=== PATIENT | male | born 1990 | race Two or more races ===

== ENCOUNTER 2022-05-28 05:45 | Emergency (ER) | payer SELFPAY ==
--- NOTE | 2022-05-28 06:15 | XR_ITS ---
PROCEDURE INFORMATION: Exam: XR Chest Exam date and time: 05/28/2022 6:34 AM Age: 31 years old Clinical indication: Shortness of breath; Additional info: Cough shortness of breath TECHNIQUE: Imaging protocol: Radiologic exam of the chest. Views: 1 view. COMPARISON: No relevant prior studies available. FINDINGS: Lungs: Unremarkable. No consolidation. Pleural spaces: Unremarkable. No pleural effusion. No pneumothorax. Heart/Mediastinum: Enlarged cardiac silhouette. Findings are nonspecific and may be due to technique versus cardiomegaly versus pericardial effusion. Bones/joints: Unremarkable. IMPRESSION: Enlarged cardiac silhouette. Findings are nonspecific and may be due to technique versus cardiomegaly versus pericardial effusion.
[2022-05-28 06:16] VITALS: BP 153/98; PULSE 84; RESP 18; TEMP 36.8; O2SAT 97; BMI 35.4
[2022-05-28 06:49] LABS: Coronavirus 19, PCR Not Detected (NotDetected); Influenza A, PCR Not Detected (NotDetected); Influenza B, PCR Not Detected (NotDetected)
[2022-05-28 06:54] LABS: Basophils # 0.1 K/mm3 (0-0.2); Basophils % 0.6 % (0.1-2.0); Chloride 105 mmol/L (98-107); Eosinophils # 0.3 K/mm3 (0.0-0.4); Eosinophils % 2.6 % (0.1-12.0); Hematocrit 44.6 % (42.0-52.0); Hemoglobin 14.9 g/dL (14.1-18.0); Lymphocytes # 1.7 K/mm3 (0.7-4.5); Lymphocytes % 16.8 % (10-50); Mean Corpuscular HGB Conc 33.5 g/dL (31.8-35.4); Mean Corpuscular Hemoglobin 28.7 pg (27.0-31.2); Mean Corpuscular Volume 85.5 fl (80-94); Mean Platelet Volume 9.2 fl (7.4-10.4); Monocytes # 0.5 K/mm3 (0.1-1.0); Monocytes % 4.6 % (1.7-9.3); Neutrophils # 7.8 K/mm3 (1.8-7.8); Neutrophils % 75.4 % (37.0-80.0); Platelet Count 280 K/mm3 (142-424); Potassium 4.1 mmoL/L (3.5-5.1); Red Blood Count 5.22 M/mm3 (4.60-6.20); Red Cell Distribution Width 13.1 % (11.5-17.5); Sodium 140 mmol/L (136-145); White Blood Count 10.3 K/mm3 (4.8-10.8)
[2022-05-28 06:57] LABS: Blood Urea Nitrogen 14 mg/dl (9-20); Creatinine Clearance Estimated 200 mL/min (50-200); Estimated Glomerular Filt Rate 133 ml/min (>60); GFR (African American) 161 ML/MIN (>60)
[2022-05-28 06:58] LABS: Anion Gap 13.1 mEq/L (5-15); Calcium 8.6 mg/dl (8.4-10.2); Carbon Dioxide 26 mmol/L (22.0-30.0); Glucose 122 mg/dl (74-100)
[2022-05-28 07:01] VITALS: BP 139/86; PULSE 86; RESP 17; O2SAT 98
--- NOTE | 2022-05-28 07:15 | [facility].EDURI ---
Discharge Plan Disposition Patient Disposition: Home, Self-Care Condition: Good Prescriptions Prescriptions: New amoxicillin 875 mg tablet 875 mg PO BID Qty: 20 0RF azithromycin 250 mg tablet See Rx Instructions .ROUTE .COMPLEX Qty: 6 0RF Rx Instructions: For 250 mg dose pack: take 500 mg today (day 1), then 250 mg for 4 days (days 2-5) Referrals Follow up/Referrals: Provider,Referral, MD [Primary Care Provider] - See instructions Activity Restrictions/Add. Instructions Additional Instructions/Restrictions: Finish all the antibiotics use Tylenol and naproxen for pain relief increase oral hydration and consider nasal decongestants as needed. Clinical Impressions Clinical Impression: Community acquired pneumonia, Acute tension headache Instructions Patient Instructions: Pneumonia-Adult Discharge ED Provider: Danny Canchola/Dwayne Throat HPI General Chief Complaint: Upper Respiratory Infection Stated Complaint: LEE,HBP,Nose bleed Time Seen by Provider: 05/28/22 06:20 Mode of Arrival: Ambulatory Source of Information: Patient Limitations: Language Barrier Description of Symptoms (Recalled from ER Triage Doc. by RN): Per patient, he has had a headache and sore throat for the prior 3 days. Does report that the he has a cough intermitently. Patient denies any sick contacts. Denies any bodyaches or known fever. Does report that his headache is more severe after intercourse. History of Present Illness HPI Narrative: 31-year-old male who presents with 3 days of cough sore throat congestion and intermittent headache that is frontal in nature. His headache was worse this morning after coughing spell. He felt mildly short of breath after the spell. He denies fevers chills or body aches. Denies vomiting and diarrhea has no chest pain or abdominal pain. He took naproxen for frontal headache 2 days ago did not feel like it helped but also states the headache improved by the end of the day. Related Data Previous Rx's Medication Instructions Recorded amoxicillin 875 mg tablet 875 mg PO BID #20 tabs 05/28/22 azithromycin 250 mg tablet See Rx Instructions PO .COMPLEX #6 05/28/22 tabs Allergies Allergy/AdvReac Type Severity Reaction Status Date / Time No Known Allergies Allergy Verified 05/28/22 06:26 [facility] Disclaimer: The information contained in this section may have been updated after the patient was seen, as this information can be updated by other users. Social History Smoking Status: Never smoker alcohol intake: never current occupational status: employed Travel in the last 8 weeks: None ROS Obtained: Yes Systems reviewed as appropriate & no additional complaints except as documented Physical Exam General General appearance: alert and in no apparent distress Head Head exam: atraumatic and normocephalic Eye Eye exam: Present normal appearance, PERRL and EOMI ENT ENT exam: Present normal exam Neck Neck exam: Present normal inspection and trachea midline Chest Chest inspection: Present symmetric chest wall rise Respiratory Respiratory exam: Present normal lung sounds bilaterally; Absent respiratory distress or wheezes Cardiovascular Cardiovascular exam: Present regular rate Abdominal Exam Abdominal exam: Present soft; Absent distention Extremities Exam Extremities exam: Present normal inspection Neurological Exam Neurological exam: Present alert and oriented X3 Psychiatric Psychiatric exam: Present normal affect Skin Skin exam: Present warm, dry and intact Lymphatic Lymphatic Findings: no adenopathy Medical Decision Making Medical Records Medical records reviewed: Yes I reviewed the patient's medical records. [place] Inquiry Pt receiving controlled substance: No Vital Signs: 05/28/22 06:16 Temperature 98.2 F Temperature Source Oral Pulse Rate [Apical] 84 Respiratory Rate 18 Blood Pressure [Right Arm] 153/98 H Blood Pressure Mean [Right Arm] 116
[2022-05-28 07:31] VITALS: BP 134/81; PULSE 85; RESP 18; O2SAT 98
[2022-05-28 08:00] VITALS: BP 127/83; PULSE 77; RESP 17; O2SAT 97
[2022-05-28 08:17] VITALS: BP 133/94; PULSE 86; RESP 20; TEMP 36.8; O2SAT 99
== END 2022-05-28 08:19 | disposition home or self-care (01) ==
PROVIDERS: Emergency Provider Student in an Organized Health Care Education/Training Program
DX: J18.9 Pneumonia, unspecified organism (principal); R51.9 Headache, unspecified; Z20.822 Contact with and (suspected) exposure to COVID-19
CPT/HCPCS: 71045; 80048; 85025; 96361; 96374; 99284; C9803; J0131; U0003; U0005